=== PATIENT | female | born 1975 | race Caucasian/White ===

== ENCOUNTER 2020-10-31 22:56 | Emergency (ER) | payer OTHER ==
[~2020-10-31] VITALS: Ht 152.4 cm; Wt 83.9 kg
[2020-10-31 22:57] VITALS: BP_SYST 104
[2020-10-31] MEDS ORDERED: IBUPROFEN 800 MG TABLET PO ONE (23:15)
[2020-10-31] MEDS ORDERED: IBUPROFEN 800 MG TABLET ONE (23:16)
[2020-10-31] MEDS ORDERED: KETAMINE 30 MG/3 ML SYRINGE IM ONE ×2 (23:45)
[2020-11-01] MEDS ORDERED: KETAMINE HCL 500 MG/10 ML VIAL ONE (00:16)
[2020-11-01] MEDS ORDERED: KETAMINE 30 MG/3 ML SYRINGE IM ONE (01:15)
[2020-11-01 02:14] VITALS: BP_SYST 96
== END 2020-11-01 02:14 | disposition short-term general hospital (02) ==
LOC: SED 22:56
DX: S82.842A Displaced bimalleolar fracture of left lower leg, initial encounter for closed fracture (principal); W18.49XA Other slipping, tripping and stumbling without falling, initial encounter; Y93.89 Activity, other specified; Y92.89 Other specified places as the place of occurrence of the external cause; Y99.8 Other external cause status
CPT/HCPCS: 99285